=== PATIENT | female | born 1955 | race Caucasian/White ===

== ENCOUNTER → 2017-09-05 | Outpatient (CLI) | payer BC ==
[~2017-09-05] MED LIST: ALB6.7R INH; ATOR20TA22 PO; BENZ100C4 PO; CEF300 PO; DULERAPT INH; FLUT16SP19 NS; PHEN30SP NS; PRED-1 PO
[2017-09-05 14:04] LABS: PLATELET COUNT, AUTOMATED 336 K/uL (150-450)
--- NOTE | 2017-09-05 14:23 | RADIOLOGY IMAGING REPORT ---
FACILITY: [facility] PATIENT NAME: Sunil James : 1955 MR: [id number] V: [id number] EXAM DATE: ORDERING PHYSICIAN: CHICHO EDWARDS TECHNOLOGIST: Location: [facility] - [place] Patient: Sunil James : 1955 Visit/Account:[id number] Date of Sevice: 09/05/2017 2 VIEWS CHEST INDICATION: Cough for 3 months. COMPARISON: None available FINDINGS: Cardiomediastinal silhouette and pulmonary vessels within normal limits. There is no focal infiltrate or lobar consolidation. There is no pneumothorax or pleural effusion. No nodule. Upper abdomen is unremarkable. No acute bony abnormality. IMPRESSION: 1. No acute cardiopulmonary process. Report Dictated By: Trino Sutherland at 09/05/2017 2:17 PM Report E-Signed By: Trino Sutherland at 09/05/2017 2:18 PM WSN:[id number]
== END ==
LOC: LAB 13:29
PROVIDERS: ATTEND Nurse Practitioner Primary Care
DX: R06.02 Shortness of breath (principal); R05 Cough
CPT/HCPCS: 36415; 71046; 82040; 82247; 82310; 82374; 82435; 82565; 82947; 83880; 84075; 84132; 84155; 84295; 84450; 84460; 84520; 85025

== ENCOUNTER → 2018-08-08 | Outpatient (CLI) | payer OTHER ==
[~2018-08-08] MED LIST changes: +AZEL205. NS; +AZEL23SP NS; +AZIT-1 PO; +FLU60VIA41 IM; +MONT10TA PO; +OLO2ODPT OU
== END ==
LOC: LAB 14:50
PROVIDERS: ATTEND Emergency Medicine
DX: R19.7 Diarrhea, unspecified (principal)
CPT/HCPCS: 87045

== ENCOUNTER → 2018-10-09 | Outpatient (CLI) | payer OTHER ==
[~2018-10-09] MED LIST changes: +MECL25TA9 PO
[2018-10-09 08:34] LABS: PLATELET COUNT, AUTOMATED 267 K/uL (150-450)
[2018-10-09 09:25] LABS: LDL CHOLESTEROL 102 mg/dl
== END ==
LOC: LAB 08:17
PROVIDERS: ATTEND Emergency Medicine
DX: I10 Essential (primary) hypertension (principal)
CPT/HCPCS: 36415; 82040; 82247; 82310; 82374; 82435; 82465; 82565; 82947; 83718; 84075; 84132; 84155; 84295; 84443; 84450; 84460; 84478; 84520; 85025

== ENCOUNTER 2018-10-14 16:31 | Emergency (ER) | payer OTHER ==
--- NOTE | 2018-10-14 16:43 | ER Report ---
History and Physical Time Seen By MD: 16:43 Hx. of Stated Complaint: PATIENT REPORTS THAT SHE SAW HER PRIMARY CARE PROVIDER THE OTHER DAY FOR FEELING LIGHTHEADED. SHE HAD AN ELEVATED BP AND POSSIBLY VERTIGO HPI/ROS CHIEF COMPLAINT: Lightheadedness, heart palpitations, dizziness HISTORY OF PRESENT ILLNESS: 63-year-old female patient presents to emergency room with complaint of lightheadedness, heart palpitations and dizziness. Patient states his been going on for the past several days. She states that she saw her primary care provider who felt that this was likely vertigo. She started on meclizine. Patient states that she is taking medication, however it has made her feel very sleepy. Patient states that the dizzy lightheaded sensation has been intermittent. She states that it has happened while she is driving. She states she has noticed that when she feels like her heart is racing. She states that she's also noticed that when she is not having any heart racing sensation. Patient states she has had some nausea but denies any vomiting. She states she's taken the meclizine but no other medications for this. REVIEW OF SYSTEMS: Respiratory: No cough, no dyspnea. Cardiovascular: No chest pain, no palpitations. Gastrointestinal: As noted above Musculoskeletal: No back pain. Allergies: Coded Allergies: Penicillins (Verified Allergy, Unknown, 08/01/17) Quinolones (Verified Allergy, Unknown, 08/01/17) Tetracyclines (Verified Allergy, Unknown, 08/01/17) aspirin (Unverified Allergy, Unknown, 08/01/17) codeine (Verified Allergy, Unknown, 08/01/17) Home Meds Active Scripts Nitrofurantoin Monohyd/M-Cryst (MACROBID 100 MG CAPSULE) 100 Mg Capsule, 100 MG PO BID, #14 CAPSULE Prov:SMOOTH SHAH APPRAISAL ANALYST 10/14/18 Meclizine Hcl (MECLIZINE HCL) 25 Mg Tablet, 0.5-1 TAB PO TID PRN for DIZZINESS, #20 TAB 0 Refills Prov:CHICHO EDWARDS [facility], APPRAISAL ANALYST-BC 09/30/18 Montelukast Sodium (SINGULAIR) 10 Mg Tablet, 1 TAB PO QDAY, #90 TAB 3 Refills Prov:ALFREDO SORIA JR, MD 11/21/17 Atorvastatin Calcium (LIPITOR) 20 Mg Tablet, 1 TAB PO DAILY, #90 TAB 3 Refills Prov:DAKOTA AQUINO MD 09/20/17 Discontinued Reported Medications Albuterol Sulfate (PROVENTIL HFA) Unknown Strength Inh, INH PRN, INH 08/01/17 Phenylephrine Hcl (NASAL SPRAY) 30 Ml [place], 30 ML NS BID, SPRAY 08/01/17 Fluticasone Prop 50 Mcg Ns (FLONASE 50 MCG NS) 16 Gm [place].susp, 2 SPRAYS NS QDAY, BOT 08/01/17 Discontinued Scripts Olopatadine (PATADAY) 0.05 Ml Soln, 1 DROP OU DAILY for 30 Days, #1 BOTTLE Prov:ALFREDO SORIA JR, MD 01/28/18 Azelastine HCl (Azelastine HCl) 205.5 Mcg/0.137 Ml [place].pump, 1 SPRAYS NS BID for 30 Days, #1 BOT 3 Refills Prov:ALFREDO SORIA JR, MD 11/09/17 Azelastine/Fluticasone (DYMISTA NASAL SPRAY) 23 Gm [place].pump, 1 SPRAY NS BID for 30 Days, #1 BOT Prov:ALFREDO SORIA JR, MD 10/25/17 Mometasone/Formoterol (DULERA 200 MCG/5 MCG INHALER) 13 Gm Inh, 2 PUFF INH BID for 30 Days, #1 INH 0 Refills Prov:CHICHO EDWARDS DNP, APPRAISAL ANALYST-BC 09/05/17 Past Medical/Surgical History Patient has a past medical history of asthma. Patient denies any surgical history. Reviewed Nurses Notes: Yes Smoking Status: Never Smoker Hx Substance Use Disorder: No Hx Alcohol Use: No Constitutional Vital Sign - Last 24 Hours 10/14/18 10/14/18 10/14/18 10/14/18 16:36 16:38 16:41 17:01 Temp 98.4 Pulse 92 88 Resp 20 B/P (MAP) 198/108 (138) 198/108 167/89 (115) Pulse Ox 93 90 O2 Delivery Room Air 10/14/18 10/14/18 10/14/18 10/14/18 17:31 18:01 18:06 18:36 Pulse 88 85 90 83 Pulse Ox 90 90 90 93 10/14/18 18:45 B/P (MAP) 149/88 (108) Physical Exam General Appearance: The patient is alert, has no immediate need for airway protection and no current signs of toxicity. ENT: Tympanic membranes are pearly-andrade, auditory canals are patent, mucous m embranes are moist. Aspen-Hallpike maneuver was performed which was negative. Respiratory: Chest is non tender, lungs are clear to auscultation. Cardiac: regular rate and rhythm Gastrointestinal: Abdomen is soft and non tender, no masses, bowel sounds normal. Musculoskeletal: Neck: Neck is supple and non tender. Extremities have full range of motion and are non tender. Skin: No rashes or lesions. DIFFERENTIAL DIAGNOSIS: After history and physical exam differential diagnosis was considered for dizziness including but not limited to peripheral and central causes of vertigo, orthostatic causes including dehydration, and blood loss. Medical Decision Making Data Points Result Diagram: 10/14/18 1728 10/14/18 1728 Laboratory Hematology Test 10/14/18 17:05 10/14/18 17:28 Urine Color Yellow Urine Clarity Clear Urine pH 6.0 pH (4.8-9.5) Urine Specific [place] 1.018 Urine Protein Negative mg/dL (NEGATIVE) Urine Glucose (UA) Negative mg/dL (NEGATIVE) Urine Ketones Negative mg/dL (NEGATIVE) Urine Blood Negative (NEGATIVE) Urine Nitrite Negative (NEGATIVE) Urine Bilirubin Negative (NEGATIVE) Urine Urobilinogen 2.0 mg/dL (0.2-1.9) Urine Leukocyte Esterase Moderate (NEGATIVE) Urine RBC 1 /HPF (0-2/HPF) Urine WBC 15 /HPF (0-5/HPF) Urine Squamous Epithelial Cells Many /LPF (</=FEW) Urine Bacteria Negative /HPF (NONE-FEW) Urine Mucus None /HPF (NONE-FEW) Red Blood Count 5.41 M/uL (4.17-5.56) Mean Corpuscular Volume 86.0 fL (80.0-96.0) Mean Corpuscular Hemoglobin 29.3 pg (26.0-33.0) Mean Corpuscular Hemoglobin Concent 34.0 g/dL (32.0-36.0) Red Cell Distribution Width 14.2 % (11.5-14.5) Mean Platelet Volume 7.5 fL (7.2-11.1) Neutrophils (%) (Auto) 56.8 % (39.4-72.5) Lymphocytes (%) (Auto) 29.3 % (17.6-49.6) Monocytes (%) (Auto) 8.7 % (4.1-12.4) Eosinophils (%) (Auto) 4.2 % (0.4-6.7) Basophils (%) (Auto) 1.0 % (0.3-1.4) Nucleated RBC Relative Count (auto) 0.2 /100WBC Neutrophils # (Auto) 4.3 K/uL (2.0-7.4) Lymphocytes # (Auto) 2.2 K/uL (1.3-3.6) Monocytes # (Auto) 0.7 K/uL (0.3-1.0) Eosinophils # (Auto) 0.3 K/uL (0.0-0.5) Basophils # (Auto) 0.1 K/uL (0.0-0.1) Nucleated RBC Absolute Count (auto) 0.02 K/uL D-Dimer Quantitative (PE/DVT) < 0.27 ug/ml (0-0.50) Sodium Level 141 mmol/L (137-145) Potassium Level 3.6 mmol/L (3.5-5.0) Chloride Level 106 mmol/L (98-107) Carbon Dioxide Level 27 mmol/L (22-31) Blood Urea Nitrogen 12 mg/dl (7-18) Creatinine 0.50 mg/dl (0.52-1.04) Glomerular Filtration Rate Calc > 60.0 Random Glucose 124 mg/dl (75-110) Calcium Level 9.8 mg/dl (8.4-10.2) Total Bilirubin 0.3 mg/dl (0.2-1.3) Aspartate Amino Transf (AST/SGOT) 30 U/L (0-35) Alanine Aminotransferase (ALT/SGPT) 33 U/L (0-56) Alkaline Phosphatase 105 U/L (0-126) Total Protein 7.3 g/dl (6.3-8.2) Albumin 4.6 g/dl (3.5-5.0) Chemistry Test 10/14/18 17:05 10/14/18 17:28 Urine Color Yellow Urine Clarity Clear Urine pH 6.0 pH (4.8-9.5) Urine Specific [place] 1.018 Urine Protein Negative mg/dL (NEGATIVE) Urine Glucose (UA) Negative mg/dL (NEGATIVE) Urine Ketones Negative mg/dL (NEGATIVE) Urine Blood Negative (NEGATIVE) Urine Nitrite Negative (NEGATIVE) Urine Bilirubin Negative (NEGATIVE) Urine Urobilinogen 2.0 mg/dL (0.2-1.9) Urine Leukocyte Esterase Moderate (NEGATIVE) Urine RBC 1 /HPF (0-2/HPF) Urine WBC 15 /HPF (0-5/HPF) Urine Squamous Epithelial Cells Many /LPF (</=FEW) Urine Bacteria Negative /HPF (NONE-FEW) Urine Mucus None /HPF (NONE-FEW) White Blood Count 7.5 k/uL (4.5-11.0) Red Blood Count 5.41 M/uL (4.17-5.56) Hemoglobin 15.8 g/dL (12.0-16.0) Hematocrit 46.6 % (34.0-47.0) Mean Corpuscular Volume 86.0 fL (80.0-96.0) Mean Corpuscular Hemoglobin 29.3 pg (26.0-33.0) Mean Corpuscular Hemoglobin Concent 34.0 g/dL (32.0-36.0) Red Cell Distribution Width 14.2 % (11.5-14.5) Platelet Count 294 K/uL (150-450) Mean Platelet Volume 7.5 fL (7.2-11.1) Neutrophils (%) (Auto) 56.8 % (39.4-72.5) Lymphocytes (%) (Auto) 29.3 % (17.6-49.6) Monocytes (%) (Auto) 8.7 % (4.1-12.4) Eosinophils (%) (Auto) 4.2 % (0.4-6.7) Basophils (%) (Auto) 1.0 % (0.3-1.4) Nucleated RBC Relative Count (auto) 0.2 /100WBC Neutrophils # (Auto) 4.3 K/uL (2.0-7.4) Lymphocytes # (Auto) 2.2 K/uL (1.3-3.6) Monocytes # (Auto) 0.7 K/uL (0.3-1.0) Eosinophils # (Auto) 0.3 K/uL (0.0-0.5) Basophils # (Auto) 0.1 K/uL (0.0-0.1) Nucleated RBC Absolute Count (auto) 0.02 K/uL D-Dimer Quantitative (PE/DVT) < 0.27 ug/ml (0-0.50) Glomerular Filtration Rate Calc > 60.0 Calcium Level 9.8 mg/dl (8.4-10.2) Total Bilirubin 0.3 mg/dl (0.2-1.3) Aspartate Amino Transf (AST/SGOT) 30 U/L (0-35) Alanine Aminotransferase (ALT/SGPT) 33 U/L (0-56) Alkaline Phosphatase 105 U/L (0-126) Total Protein 7.3 g/dl (6.3-8.2) Albumin 4.6 g/dl (3.5-5.0) Coagulation Test 10/14/18 17:28 D-Dimer Quantitative (PE/DVT) < 0.27 ug/ml Urinalysis Test 10/14/18 17:05 Urine Color Yellow Urine Clarity Clear Urine pH 6.0 pH (4.8-9.5) Urine Specific [place] 1.018 Urine Protein Negative mg/dL (NEGATIVE) Urine Glucose (UA) Negative mg/dL (NEGATIVE) Urine Ketones Negative mg/dL (NEGATIVE) Urine Blood Negative (NEGATIVE) Urine Nitrite Negative (NEGATIVE) Urine Bilirubin Negative (NEGATIVE) Urine Urobilinogen 2.0 mg/dL (0.2-1.9) Urine Leukocyte Esterase Moderate (NEGATIVE) Urine RBC 1 /HPF (0-2/HPF) Urine WBC 15 /HPF (0-5/HPF) Urine Squamous Epithelial Cells Many /LPF (</=FEW) Urine Bacteria Negative /HPF (NONE-FEW) Urine Mucus None /HPF (NONE-FEW) EKG/Imaging EKG Interpretation 12 lead EKG: Rhythm: Normal sinus rhythm [place]: Left axis deviation QRS: normal ST segments: normal Imaging Exam type: CHEST PA LAT History: dizziness Comparison: September 05, 2017. Findings: The lungs are free of acute effusions, infiltrates or edema. The cardiac silhouette is normal in size. The trachea is in midline. There are spondylotic changes of the thoracic spine. IMPRESSION: 1. No acute cardiopulmonary process is seen Report Dictated By: Shayla Hebert MD at 10/14/2018 6:06 PM Report E-Signed By: Shayla Hebert MD at 10/14/2018 6:07 PM EXAMINATION: CT HEAD WITHOUT CONTRAST COMPARISON: None available HISTORY: dizziness PROCEDURE: Noncontrast CT from the vertex through the skull base. One of the following dose optimization techniques was utilized in the performance of this exam: Automated exposure control; adjustment of the mA and/or kV according to the patient's size; or use of an iterative reconstruction technique. Specific details can be referenced in the facility's radiology CT exam operational policy. FINDINGS: Brain volume: Age-appropriate. Hemorrhage/extra-axial fluid: None. Mass effect/midline shift/edema: None. Ischemia: Andrade-white differentiation is preserved. Ventricles and basal cisterns: Within normal limits. Posterior fossa: Negative. Vessels: Negative. Calvarium, skull base, and scalp: Negative. Visualized sinuses and orbits: Within normal limits. IMPRESSION: Negative noncontrast head CT. Report Dictated By: Alex Hanson MD at 10/14/2018 6:09 PM Report E-Signed By: Alex Hanson MD at 10/14/2018 6:14 PM ED Course/Re-evaluation ED Course Patient was admitted to an exam room, history and physical were obtained. Differential diagnoses were considered. On examination lungs are clear, heart is regular, abdomen soft nontender. I did do a Aspen-Hallpike maneuver with the patient which was negative. A CT scan of the head was done, a chest x-ray, CBC, CMP, d-dimer, urinalysis. The lab results were unremarkable except patient did have 15 white blood cells and a moderate leukocyte esterase on her urine. A urine culture was ordered. I did opt to go ahead and treat her urinary tract infection with Macrobid. Add do have concerns that she may be having dizziness and lightheadedness secondary to urinary tract infection. We will go ahead and treat her and monitor and see how things go over the next few days. I would like to follow-up with her primary care provider, which she has an appointment for on Sunday at 8:30. She is return to emergency room if condition worsens. I would li ke to take the next couple of days off to rest and take it easy. Patient and her verbalized understanding and agreement with plan. Decision to Disposition Date: Oct 14, 2018 Decision to Disposition Time: 18:44 Depart Departure Latest Vital Signs Vital Signs Date Time Temp Pulse Resp B/P (MAP) Pulse Ox O2 Delivery O2 Flow Rate FiO2 10/14/18 18:45 149/88 (108) 10/14/18 18:36 83 93 10/14/18 16:38 98.4 20 Room Air Impression: Primary Impression: UTI (urinary tract infection) Condition: Improved Disposition: HOME OR SELF-CARE Referrals: DAKOTA AQUINO MD (PCP) New Scripts Nitrofurantoin Monohyd/M-Cryst (MACROBID 100 MG CAPSULE) 100 Mg Capsule 100 MG PO BID, #14 CAPSULE Prov: SMOOTH SHAH 10/14/18 Patient Instructions: Urinary Tract Infection in Women (ED) Additional Instructions: Increase fluid intake. Get plenty of rest. Take the next 2-3 days off of work. We will culture the urine and grow out the bacteria that is causing the infection, we will call if we need to change antibiotics. Return to the ER if condition worsens. Follow up with your primary care provider on Sunday as scheduled. Problem Qualifiers Primary Impression: UTI (urinary tract infection) Urinary tract infection type: acute cystitis Hematuria presence: without hematuria Qualified Codes: N30.00 - Acute cystitis without hematuria SMOOTH SHAH Oct 14, 2018 16:43
[2018-10-14] MEDS ORDERED: NS(*) 0.9% 1000 ML BAG 1,000 ML IV ONE (16:54)
--- NOTE | 2018-10-14 17:15 | EKG ---
FACILITY: [facility] - [place] PATIENT NAME: ABBY ESCALERA : [id number] MR: [id number] V: [id number] EXAM DATE: ORDERING PHYSICIAN: SMOOTH SHAH TECHNOLOGIST: JANNET Lr Reason : DIZZY Blood Pressure : / mmHG Vent. Rate : 084 BPM Atrial Rate : 084 BPM P-R Int : 170 ms QRS Dur : 090 ms QT Int : 366 ms P-R-T Axes : 050 -37 061 degrees QTc Int : 432 ms Sinus rhythm Decreased R wave progression Left axis deviation Abnormal ECG No previous ECGs available Confirmed by VALENTÍN BAER ([id number]) on 10/15/2018 6:01:39 AM Referred By: ALYSSA Confirmed By:VALENTÍN BAER
[2018-10-14 17:53] LABS: PLATELET COUNT, AUTOMATED 294 K/uL (150-450)
--- NOTE | 2018-10-14 18:11 | RADIOLOGY IMAGING REPORT ---
FACILITY: [facility] - [place] PATIENT NAME: Sunil James : 1955 MR: [id number] V: [id number] EXAM DATE: ORDERING PHYSICIAN: SMOOTH SHAH TECHNOLOGIST: Location: [facility] - [place] Patient: Sunil James : 1955 Visit/Account:[id number] Date of Sevice: 10/14/2018 Exam type: CHEST PA LAT History: dizziness Comparison: September 05, 2017. Findings: The lungs are free of acute effusions, infiltrates or edema. The cardiac silhouette is normal in siz e. The trachea is in midline. There are spondylotic changes of the thoracic spine. IMPRESSION: 1. No acute cardiopulmonary process is seen Report Dictated By: Shayla Hebert MD at 10/14/2018 6:06 PM Report E-Signed By: Shayla Hebert MD at 10/14/2018 6:07 PM WSN:[id number]
--- NOTE | 2018-10-14 18:18 | RADIOLOGY IMAGING REPORT ---
FACILITY: [facility] PATIENT NAME: Sunil James : 1955 MR: [id number] V: [id number] EXAM DATE: ORDERING PHYSICIAN: SMOOTH SHAH TECHNOLOGIST: Location: [facility] [place] Patient: Sunil James : 1955 Visit/Account:[id number] Date of Sevice: 10/14/2018 EXAMINATION: CT HEAD WITHOUT CONTRAST COMPARISON: None available HISTORY: dizziness PROCEDURE: Noncontrast CT from the vertex through the skull base. One of the following dose optimizat ion techniques was utilized in the performance of this exam: Automated exposure control; adjustment o f the mA and/or kV according to the patient's size; or use of an iterative reconstruction technique. Specific details can be referenced in the facility's radiology CT exam operational policy. FINDINGS: Brain volume: Age-appropriate. Hemorrhage/extra-axial fluid: None. Mass effect/midline shift/edema: None. Ischemia: Andrade-white differentiation is preserved. Ventricles and basal cisterns: Within normal limits. Posterior fossa: Negative. Vessels: Negative. Calvarium, skull base, and scalp: Negative. Visualized sinuses and orbits: Within normal limits. IMPRESSION: Negative noncontrast head CT. Report Dictated By: Alex Hanson MD at 10/14/2018 6:09 PM Report E-Signed By: Alex Hanson MD at 10/14/2018 6:14 PM WSN:[id number]
[2018-10-14 18:45] VITALS: BP 149/88
[2018-10-14] MEDS ORDERED: NITR-105 PO (18:47)
== END 2018-10-14 18:54 | disposition home or self-care (01) ==
LOC: ER 16:52
DX: N30.00 Acute cystitis without hematuria (principal)
CPT/HCPCS: 70450; 71046; 81001; 82040; 82247; 82310; 82374; 82435; 82565; 82947; 84075; 84132; 84155; 84295; 84450; 84460; 84520; 85025; 85379; 87088; 93005; 99284

== ENCOUNTER → 2018-10-21 | Outpatient (CLI) | payer OTHER ==
[~2018-10-21] MED LIST changes: +ATOR40TA69 PO; +LOSA50TA80 PO; +NITR-105 PO
== END ==
LOC: LAB 08:49
PROVIDERS: ATTEND Emergency Medicine
DX: N39.0 Urinary tract infection, site not specified (principal)
CPT/HCPCS: 81001

== ENCOUNTER → 2018-11-29 | Outpatient (CLI) | payer OTHER ==
[2018-11-29 12:27] LABS: LDL CHOLESTEROL 60 mg/dl
== END ==
LOC: LAB 11:39
PROVIDERS: ATTEND Emergency Medicine
DX: I10 Essential (primary) hypertension (principal)
CPT/HCPCS: 36415; 82310; 82374; 82435; 82465; 82565; 82947; 83718; 84132; 84295; 84478; 84520

== ENCOUNTER → 2018-12-06 | Outpatient (CLI) | payer OTHER ==
--- NOTE | 2018-12-11 08:19 | RADIOLOGY IMAGING REPORT ---
FACILITY: [facility] - [place] PATIENT NAME: ABBY ESCALERA : [id number] MR: [id number] V: [id number] EXAM DATE: ORDERING PHYSICIAN: DAKOTA AQUINO TECHNOLOGIST: Daksha Barahona PROCEDURE: BILATERAL DIGITAL SCREENING MAMMOGRAM WITH CAD ASSISTED INTERPRETATION & 3D TOMOSYNTHESIS REASON FOR STUDY: Screening FAMILY HISTORY OF BREAST CANCER: Mother at age 51 & Maternal Aunt BREAST PROCEDURES/TREATMENTS: Benign lumpectomy of Right breast COMPARISON: 05/22/16, 02/03/13, 02/22/10, 06/02/09, 12/25/08, 12/10/08 VIEWS OBTAINED: Bilateral 2D & 3D full field CC & MLO projections BREAST DENSITY: The breasts are heterogeneously dense which can obscure small masses. MAMMOGRAM FINDINGS: The parenchymal pattern has remained stable allowing for difference in mammographic technique & patient positioning. There is an area of architectural distortion from prior biopsy in upper outer quadrant of the Right breast. IMPRESSION: BIRADS 2: Benign finding. DIAGNOSTIC CATEGORY 2--BENIGN FINDING. RECOMMENDATIONS: ROUTINE MAMMOGRAM AND CLINICAL EVALUATION. Dictated by: Shayla Hebert M.D. on 12/09/2018 at 18:25 Transcribed by: [email or web address] on 12/10/2018 at 7:21 Approved by: Shayla Hebert M.D. on 12/11/2018 at 8:18 [facility]
== END ==
LOC: MAMO 02:17
PROVIDERS: ATTEND Emergency Medicine
DX: Z12.31 Encounter for screening mammogram for malignant neoplasm of breast (principal); Z80.3 Family history of malignant neoplasm of breast
CPT/HCPCS: 77063; 77067